=== PATIENT | female | born 1980 | race Caucasian/White ===

== ENCOUNTER 2016-10-02 05:24 | Emergency (ER) | payer SELFPAY ==
[~2016-10-02] VITALS: Ht 152.4 cm; Wt 47.0 kg
[2016-10-02 05:31] VITALS: Ht 152.4 cm; Wt 47.0 kg
[2016-10-02 06:17] VITALS: BP 138/79; PULSE 66; RESP 20; TEMP 97.4
[2016-10-02 06:37] LABS: BASOPHILS % 0.3 % (0.0-2.0); EOSINOPHILS # 0.1 10^3/ul (0.0-0.5); EOSINOPHILS % 0.7 % (0.0-7.0); HEMATOCRIT 43.5 % (37.0-47.0); HEMOGLOBIN 14.9 g/dl (12.0-16.0); LYMPHOCYTES % 21.5 % (15.0-51.0); MEAN CORPUSCULAR HEMOGLOBIN 32.5 pg (29.0-33.0); MEAN CORPUSCULAR HGB CONC 34.3 g/dl (32.0-37.0); MEAN PLATELET VOLUME 10.5 fl (7.4-10.4); MONOCYTE # 0.8 10^3/ul (0.3-0.9); NEUTROPHIL # 6.3 10^3/ul (1.6-7.5); NEUTROPHILS % 68.2 % (39.0-77.0); PLATELET COUNT 290 10^3/UL (140-415); RED BLOOD COUNT 4.58 10^6/ul (4.20-5.40); RED CELL DISTRIBUTION WIDTH 12.4 % (11.5-14.5); WHITE BLOOD COUNT 9.2 10^3/ul (4.8-10.8)
[2016-10-02 06:57] LABS: ALANINE AMINOTRANSFERASE 36 IU/L (13-69); ALBUMIN 4.9 g/dl (3.3-4.9); ALBUMIN/GLOBULIN RATIO 1.32; ALKALINE PHOSPHATASE 104 IU/L (42-121); ANION GAP 22 (8-16); ASPARTATE AMINO TRANSFERASE 28 IU/L (15-46); BILIRUBIN,INDIRECT 0.3 mg/dl (0-1.1); BILIRUBIN,TOTAL 0.3 mg/dl (0.2-1.3); BLOOD UREA NITROGEN 10 mg/dl (7-20); CARBON DIOXIDE 29 mmol/L (21-31); CHLORIDE 103 mmol/L (97-110); CREATININE 0.75 mg/dl (0.44-1.00); GLUCOSE 120 mg/dl (70-220); SODIUM 148 mmol/L (135-144); TOTAL PROTEIN 8.6 g/dl (6.1-8.1)
[2016-10-02 06:59] LABS: ACETAMINOPHEN < 10.0 ug/ml (10.0-30.0); ETHANOL < 10.0 mg/dl; POTASSIUM 5.5 mmol/L (3.5-5.1); SALICYLATE < 1.0 mg/dl (5.0-30.0)
[2016-10-02 08:00] LABS: ADD UMIC YES; UR ASCORBIC ACID NEGATIVE (NEGATIVE); UR BILIRUBIN (Dip) NEGATIVE (NEGATIVE); UR BLOOD (Dip) 1+ mg/dL (NEGATIVE); UR CLARITY CLEAR (CLEAR); UR COLOR COLORLESS (YELLOW); UR GLUCOSE (Dip) NEGATIVE (NEGATIVE); UR KETONES (Dip) NEGATIVE (NEGATIVE); UR LEUKOCYTE ESTERASE (Dip) NEGATIVE Leu/ul (NEGATIVE); UR NITRITE (Dip) NEGATIVE (NEGATIVE); UR RBC 1 /HPF (0-5); UR SPECIFIC GRAVITY (Dip) 1.002 (1.003-1.030); UR TOTAL PROTEIN (Dip) NEGATIVE (NEGATIVE); UR UROBILINOGEN (Dip) NEGATIVE (NEGATIVE)
[2016-10-02] MEDS ORDERED: OLANZAPINE (ODT) 5 MG TAB ODT ONE (08:00)
[2016-10-02 08:13] LABS: CANNABINOIDS Negative (NEGATIVE)
[2016-10-02 08:14] LABS: BARBITURATES Negative (NEGATIVE); BENZODIAZEPINES Negative (NEGATIVE); COCAINE Negative (NEGATIVE); OPIATES Negative (NEGATIVE)
--- NOTE | 2016-10-02 08:18 | ERD ---
ER Documentation Chief Complaint Date/Time DATE: 10/02/16 TIME: 08:17 Chief Complaint here for psychiatric evaluation , very anxious due to loss of apartment HPI Patient is a 36-year-old female with bipolar disorder presents with decreased sleep. She said that she has not been able to sleep for the past 2 weeks. She is requesting a medicine for sleep. She denies suicidal or homicidal ideation. She said that she is under a lot of stress recently and has felt persistently hungry. She has been losing weight as well. Upon review of old medical records this is the patient's first visit to the emergency department. She does take Ativan and Latuda for her psychiatric disease and does have a psychiatrist that she sees regularly. ROS All systems reviewed and are negative except as per history of present illness. Allergies Allergies: Coded Allergies: No Known Allergy (Unverified , 10/02/16) PMhx/Soc History of Surgery: Yes (C SECTION X 1.) Anesthesia Reaction: No Hx Neurological Disorder: No Hx Respiratory Disorders: No Hx Cardiac Disorders: No Hx Psychiatric Problems: Yes (ANXIETY, BIPOLAR, DEPRESSION) Hx Miscellaneous Medical Probl: No Hx Alcohol Use: No Hx Substance Use: No Hx Tobacco Use: No Smoking Status: Never smoker FmHx Family History: diabetes Physical Exam Vitals Vital Signs Date Time Temp Pulse Resp B/P Pulse Ox O2 Delivery O2 Flow Rate FiO2 10/02/16 06:17 97.4 66 20 138/79 98 Room Air 10/02/16 05:31 97.4 104 20 142/80 98 Physical Exam Const: No acute distress Head: Atraumatic Eyes: Normal Conjunctiva ENT: Normal External Ears, Nose and Mouth. Neck: Full range of motion..~ No meningismus. Resp: Clear to auscultation bilaterally Cardio: Regular rate and rhythm, no murmurs Abd: Soft, non tender, non distended. Normal bowel sounds Skin: No petechiae or rashes Back: No midline or flank tenderness Ext: No cyanosis, or edema Neur: Awake and alert Psych: Patient has no suicidal or homicidal ideation at this time, there is some pressured speech Result Diagram: 10/02/16 0600 10/02/16 0600 Results 24 hrs Laboratory Tests Test 10/02/16 06:00 10/02/16 07:05 White Blood Count 9.210^3/ul Red Blood Count 4.5810^6/ul Hemoglobin 14.9g/dl Hematocrit 43.5% Mean Corpuscular Volume 95.0fl Mean Corpuscular Hemoglobin 32.5pg Mean Corpuscular Hemoglobin Concent 34.3g/dl Red Cell Distribution Width 12.4% Platelet Count 51121^3/UL Mean Platelet Volume 10.5fl Neutrophils % 68.2% Lymphocytes % 21.5% Monocytes % 9.0% Eosinophils % 0.7% Basophils % 0.3% Nucleated Red Blood Cells % 0.0/100WBC Neutrophils # 6.310^3/ul Lymphocytes # 2.010^3/ul Monocytes # 0.810^3/ul Eosinophils # 0.110^3/ul Basophils # 0.010^3/ul Nucleated Red Blood Cells # 0.010^3/ul Sodium Level 148mmol/L Potassium Level 5.5mmol/L Chloride Level 103mmol/L Carbon Dioxide Level 29mmol/L Anion Gap 22 Blood Urea Nitrogen 10mg/dl Creatinine 0.75mg/dl Glucose Level 120mg/dl Calcium Level 10.0mg/dl Total Bilirubin 0.3mg/dl Direct Bilirubin 0.00mg/dl Indirect Bilirubin 0.3mg/dl Aspartate Amino Transf (AST/SGOT) 28IU/L Alanine Aminotransferase (ALT/SGPT) 36IU/L Alkaline Phosphatase 104IU/L Total Protein 8.6g/dl Albumin 4.9g/dl Globulin 3.70g/dl Albumin/Globulin Ratio 1.32 Salicylates Level < 1.0mg/dl Acetaminophen Level < 10.0ug/ml Ethyl Alcohol Level < 10.0mg/dl Urine Color COLORLESS Urine Clarity CLEAR Urine pH 6.0 Urine Specific [place] 1.002 Urine Ketones NEGATIVEmg/dL Urine Nitrite NEGATIVEmg/dL Urine Bilirubin NEGATIVEmg/dL Urine Urobilinogen NEGATIVEmg/dL Urine Leukocyte Esterase NEGATIVELeu/ul Urine Microscopic RBC 1/HPF Urine Microscopic WBC 0/HPF Urine Hemoglobin 1+mg/dL Urine Glucose NEGATIVEmg/dL Urine Total Protein NEGATIVEmg/dl Urine Opiates Screen Negative Urine Barbiturates Negative Urine Amphetamines Screen Negative Urine Benzodiazepines Screen Negative Urine Cocaine Screen Negative Urine Cannabinoids Negative Current Medications Medications (Trade) Dose Ordered Sig/Ofe Route PRN Reason Start Time Stop Time Status Last Admin Dose Admin Olanzapine (Zyprexa Zydis) 5 mg ONCE ONCE ODT 10/02/16 08:00 10/02/16 08:01 DC 10/02/16 07:44 Procedures/MDM EKG read by me: Rate/Rhythm: Regular rate and rhythm at a rate of 82 Intervals: Normal Impression: No evidence of ischemia or arrhythmia Patient is a 36-year-old female with bipolar disorder who presents with bipolar episode. The patient is having decreased sleep. Laboratory studies show a mildly elevated potassium of 5.5 but her EKG is normal. Aspirin Tylenol and alcohol levels are negative and urine drug screen is negative. The patient was given Zyprexa. She denies suicidal or homicidal ideation. At this point I do not think the patient requires a 5150 hold and I believe outpatient management is appropriate. She would like to leave. I do believe that she can leave but will need close follow-up with her primary doctor and bicycle inspector within 24-48 hours. She can return sooner for any worsening symptoms. Departure Diagnosis: Primary Impression: Psychosis Psychosis type: unspecified psychosis type Qualified Code: F29 - Psychosis, unspecified psychosis type Condition: Fair Patient Instructions: Psychosis Referrals: [facility] Usted se gomez hecho un examen mdico de control que le indica que no est en iris condicin que requiera tratamiento urgente en el Departamento de Emergencia. Un estudio ms profundo y el tratamiento de uribe condicin pueden esperar sin ningn riesgo hasta que usted sea atendida/o en el consultorio de uribe mdico o iris cl daniela. Es responsabilidad suya arreglar iris reese para el seguimiento del evan. MANEJO DE CONDICIONES NO URGENTES EN EL FUTURO 1) Si usted tiene un mdico de atencin primaria: Usted debera llamar a uribe mdico de atencin primaria antes de venir al departamento de emergencia. Despus de las horas de consultorio, uribe doctor o uribe asociado/a est disponible por telfono. El mdico o enfermero de shayla en el servicio telefnico puede asesorarle por lena medio para atender el problema, o evan contrario se puede programar iris reese. 2) Si usted no tiene un mdico de atencin primaria: Llame al mdico o clnica de referencia que aparece abajo nato las horas de consultorio para hacer iris reese para que le vean. CLINICAS: [place] [address] [phone] [facility] [phone] [facility] [phone] [address] [facility]. [place] [address] [phone] [facility]. [place] [address] [phone] [facility] [phone] [address] Additional Instructions: Llame al doctor MAANA y gloria iris REESE PARA DENTRO DE 1-2 DEAN.Dgale a la secretaria que nosotros le instruimos hacer esta reese.Avise o llame si uribe condicin se empeora antes de la reese. Regresa aqui si peor o no mejor. ANAHI BRAMBILA MD Oct 02, 2016 08:18
== END 2016-10-02 08:50 | disposition home or self-care (01) ==
LOC: E/R 05:24
DX: F29 Unspecified psychosis not due to a substance or known physiological condition (principal)
CPT/HCPCS: 80053; 80306; 80307; 81001; 85025; 93005

== ENCOUNTER 2017-10-14 20:00 | Inpatient (IN) | END 2017-10-19 18:10 | disposition home or self-care (01) | DRG 766 ==

== ENCOUNTER 2017-11-13 19:24 | Emergency (ER) | END 2017-11-14 12:20 | disposition home or self-care (01) ==

== ENCOUNTER 2017-11-17 01:00 | Emergency (ER) | END 2017-11-17 02:11 | disposition home or self-care (01) ==